=== PATIENT | female | born 1970 | race Caucasian/White ===

== ENCOUNTER 2017-05-08 05:13 | Day surgery (SDC) | payer OTHER ==
[2017-05-04 15:19] LABS: BASOPHILS # (AUTO) 0.1 X10'3 (0-0.2); BASOPHILS % (AUTO) 0.9 % (0-1); EOSINOPHILS # (AUTO) 0.6 X10'3 (0-0.9); EOSINOPHILS % (AUTO) 8.5 % (0-6); LYMPHOCYTES # (AUTO) 2.6 X10'3 (1.1-4.8); LYMPHOCYTES % (AUTO) 35.5 % (21-51); MEAN CORPUSCULAR HEMOGLOBIN 32.2 PG (27.0-31.0); MEAN CORPUSCULAR HGB CONC 34.6 % (33.0-36.5); MEAN CORPUSCULAR VOLUME 92.9 FL (78-98); MEAN PLATELET VOLUME 8.8 FL (7.4-10.4); MONOCYTES # (AUTO) 0.4 X10'3 (0-0.9); MONOCYTES % (AUTO) 5.9 % (2-12); NEUTROPHILS # (AUTO) 3.6 X10'3 (1.8-7.7); NEUTROPHILS % (AUTO) 49.2 % (42-75); PRE OP HEMATOCRIT 36.9 % (35.0-45.0); PRE OP HEMOGLOBIN 12.8 g/dL (12.0-16.0); PRE OP PLATELET COUNT 251 X10'3 (140-440); RED BLOOD COUNT 3.97 X10'6 (4.20-5.60); RED CELL DISTRIBUTION WIDTH 13.8 % (11.5-14.5)
[2017-05-04 15:36] LABS: ALBUMIN 3.5 G/DL (3.4-5.0); ALBUMIN/GLOBULIN RATIO 0.9 (1.1-1.5); ALKALINE PHOSPHATASE 62 IU/L (46-116); BLOOD UREA NITROGEN 16 MG/DL (7-18); BUN/CREATININE RATIO 19.8 (6.6-38.0); CALCIUM 8.5 MG/DL (8.5-10.1); CHLORIDE 107 MMOL/L (99-107); CREATININE 0.81 MG/DL (0.40-0.90); PRE OP ALT 21 U/L (30-65); PRE OP ANION GAP 6 (8-16); PRE OP AST 18 U/L (10-37); PRE OP BILIRUB, TOTAL 0.3 MG/DL (0.0-1.0); PRE OP GLUCOSE 114 MG/DL (70-104); PRE OP POTASSIUM 3.4 MMOL/L (3.4-5.1); PRE OP SODIUM 144 MMOL/L (135-145); TOTAL CARBON DIOXIDE 30.6 MMOL/L (24-32); TOTAL PROTEIN 7.2 G/DL (6.4-8.2); eGFR 75 ML/MIN
[~2017-05-08] VITALS: Ht 165.1 cm; Wt 70.3 kg
[~2017-05-08 05:13] MED LIST: ACET-2615 PO; ALBU8.5H8 INH; DIPH25CA6 PO; FLUT1DIS4 INH; IBUP-1985 PO; ringers solution, lacted 1,000 ML IV SCH
[2017-05-08] MEDS ORDERED: cefazolin/dext.iso 2gm/50ml 50 ML IV ONE (05:30)
[2017-05-08] MEDS ORDERED: famotidine 20mg tablet PO ONE (05:30)
[2017-05-08] MEDS ORDERED: LIDOcaine 1% (10mg/ml) 2ml vial ONE (05:48)
[2017-05-08 06:27] VITALS: BP 144/103
[2017-05-08 06:28] VITALS: BP 144/103
[2017-05-08] MEDS ORDERED: BUPIVAcaine/PF 2.5 mg/ml (0.25%) 30ml vial ONE (06:56)
[2017-05-08] MEDS ORDERED: triamcinolone acetonide 40mg/ml inj ONE (06:56)
[2017-05-08] MEDS ORDERED: cloNIDine hcl/PF 100mcg/ml inj ONE (07:15)
[2017-05-08] MEDS ORDERED: fentaNYL/PF 50MCG/1 ML 2ML syringe ONE (07:17)
[2017-05-08] MEDS ORDERED: MIDAZolam 5mg/5ml vial ONE (07:17)
[2017-05-08] MEDS ORDERED: ROPIVAcaine 0.5% (5mg/ml) 30ml vial ONE (07:18)
[2017-05-08] MEDS ORDERED: propofol inj 20 ML IV ONE (07:40)
[2017-05-08] MEDS ORDERED: LIDOcaine 1%/PF (10mg/ml) 5ml vial ONE (07:40)
[2017-05-08] MEDS ORDERED: ringers solution, lacted 1,000 ML IV SCH (08:06)
[2017-05-08] MEDS ORDERED: meperidine/PF 50mg/ml syringe IV PRN ×3 (08:10)
[2017-05-08] MEDS ORDERED: proCHLORperazine 10 MG/2 ml inj IV PRN (08:10)
[2017-05-08] MEDS ORDERED: ondansetron/PF 4mg/2ml inj IV PRN (08:10)
[2017-05-08] MEDS ORDERED: morphine 2 MG/ML inj. syringe IV PRN ×2 (08:10)
[2017-05-08 08:32] VITALS: BP 126/88
[2017-05-08 08:42] VITALS: BP 124/75
[2017-05-08 08:52] VITALS: BP 128/77
[2017-05-08] MEDS ORDERED: HYDROcodone/acetaminophen 10/325mg tab PO PRN (08:55)
[2017-05-08 09:02] VITALS: BP 145/92
== END 2017-05-08 09:15 | disposition home or self-care (01) ==
LOC: PAS 05:13
PROVIDERS: ATTEND Orthopaedic Surgery
DX: M77.11 Lateral epicondylitis, right elbow (principal); M77.01 Medial epicondylitis, right elbow; M19.111 Post-traumatic osteoarthritis, right shoulder; G89.29 Other chronic pain; K21.9 Gastro-esophageal reflux disease without esophagitis; J45.909 Unspecified asthma, uncomplicated; Z98.890 Other specified postprocedural states; Z79.1 Long term (current) use of non-steroidal anti-inflammatories (NSAID); Z79.899 Other long term (current) drug therapy
CPT/HCPCS: 24358; 36415; 80053; 85025; A4565; A6449; J0690; J0735; J2001; J2250; J2704; J2795; J3010; J3301; J3490; J7120; A7000

== ENCOUNTER 2019-05-24 05:07 | Day surgery (SDC) | payer OTHER ==
[2019-05-18 12:05] LABS: BASOPHILS # (AUTO) 0.1 X10'3 (0-0.2); BASOPHILS % (AUTO) 1.3 % (0-1); EOSINOPHILS # (AUTO) 0.6 X10'3 (0-0.9); EOSINOPHILS % (AUTO) 8.3 % (0-6); LYMPHOCYTES # (AUTO) 2.5 X10'3 (1.1-4.8); LYMPHOCYTES % (AUTO) 35.5 % (21-51); MEAN CORPUSCULAR HGB CONC 32.8 g/dL (33.0-36.5); MEAN CORPUSCULAR VOLUME 85.5 FL (78-98); MEAN PLATELET VOLUME 9.3 FL (7.4-10.4); MONOCYTES # (AUTO) 0.4 X10'3 (0-0.9); MONOCYTES % (AUTO) 5.5 % (2-12); NEUTROPHILS # (AUTO) 3.5 X10'3 (1.8-7.7); NEUTROPHILS % (AUTO) 49.4 % (42-75); PRE OP HEMATOCRIT 37.7 % (35.0-45.0); PRE OP HEMOGLOBIN 12.4 g/dL (12.0-16.0); PRE OP PLATELET COUNT 277 X10'3 (140-440); RED BLOOD COUNT 4.41 X10'6 (4.20-5.60); RED CELL DISTRIBUTION WIDTH 18.1 % (11.5-14.5)
[2019-05-18 12:20] LABS: ALBUMIN 3.8 G/DL (3.4-5.0); ALBUMIN/GLOBULIN RATIO 0.9 (1.1-1.5); ALKALINE PHOSPHATASE 63 IU/L (46-116); BLOOD UREA NITROGEN 14 MG/DL (7-18); BUN/CREATININE RATIO 20.3 (6.6-38.0); CHLORIDE 104 MMOL/L (99-107); CREATININE 0.69 MG/DL (0.40-0.90); PRE OP ALT 25 U/L (30-65); PRE OP ANION GAP 8 (8-16); PRE OP AST 21 U/L (10-37); PRE OP BILIRUB, TOTAL 0.6 MG/DL (0.0-1.0); PRE OP GLUCOSE 98 MG/DL (70-104); PRE OP POTASSIUM 3.8 MMOL/L (3.4-5.1); PRE OP SODIUM 139 MMOL/L (135-145); TOTAL CARBON DIOXIDE 27.1 MMOL/L (24-32); eGFR 90 ML/MIN
[~2019-05-24] VITALS: Ht 165.1 cm; Wt 72.6 kg
[~2019-05-24 05:07] MED LIST changes: -ACET-2615 PO; +DIPH25CA52 PO; -DIPH25CA6 PO; +FLUT16SP2 BOTHNARES; -FLUT1DIS4 INH; +MULT-1085 PO
[2019-05-24 05:30] VITALS: BP 163/95
[2019-05-24] MEDS ORDERED: cefazolin/dext.iso 2gm/100ml 100 ML IV ONE (05:30)
[2019-05-24] MEDS ORDERED: albuterol 2.5 MG/3 ML nebule NEB ONE (05:30)
[2019-05-24] MEDS ORDERED: famotidine 20mg tablet PO ONE (05:30)
[2019-05-24] MEDS ORDERED: LIDOcaine 1% (10mg/ml) 2ml vial ONE (06:20)
[2019-05-24] MEDS ORDERED: BUPIVAcaine/PF 2.5 mg/ml (0.25%) 30ml vial ONE (06:39)
[2019-05-24] MEDS ORDERED: BUPIVAcaine/PF 2.5 mg/ml (0.25%) 30ml vial IJ ONE (07:50)
[2019-05-24] MEDS ORDERED: midazolam 2 mg/2 ml injection ONE (08:39)
[2019-05-24] MEDS ORDERED: fentaNYL/PF 50MCG/1 ML 2ML syringe ONE (08:54)
[2019-05-24] MEDS ORDERED: ondansetron/PF 4mg/2ml inj ONE (09:12)
[2019-05-24] MEDS ORDERED: dexamethasone sod phosphate 4mg/ml inj. ONE (09:12)
[2019-05-24] MEDS ORDERED: ROPIVAcaine 0.5% (5mg/ml) 30ml vial ONE (09:12)
[2019-05-24] MEDS ORDERED: propofol inj 20 ML IV ONE (09:12)
[2019-05-24] MEDS ORDERED: LIDOcaine 2% (20mg/ml) 5ml vial ONE (09:12)
[2019-05-24] MEDS ORDERED: 0.9 % SODIUM CHLORIDE 10 ML VIAL ONE (09:28)
[2019-05-24] MEDS ORDERED: ePHEDrine 50MG/ML INJ. ONE (09:28)
[2019-05-24 10:06] VITALS: BP 129/78
--- NOTE | 2019-05-24 10:06 | NUR ---
Received from OR via , accompanied by Anesthesiologist DR BAÑUELOS and report given by Anesthesiolgist. AWAKENS TO VOICE. VITALS STABLE. DRESSING DI. VENANCIO PAIN. FINGERS COOL AND PINK.
[2019-05-24] MEDS ORDERED: meperidine/PF 25mg/ml syringe IV PRN ×3 (10:10)
[2019-05-24] MEDS ORDERED: morphine 4 MG/ML inj SYRINge IV PRN (10:10)
[2019-05-24] MEDS ORDERED: morphine 2 MG/ML inj. syringe IV PRN (10:10)
[2019-05-24] MEDS ORDERED: proCHLORperazine 10 MG/2 ml inj IV PRN (10:10)
[2019-05-24] MEDS ORDERED: ondansetron/PF 4mg/2ml inj IV PRN (10:10)
[2019-05-24] MEDS ORDERED: ringers solution, lacted 1,000 ML IV SCH (10:10)
[2019-05-24] MEDS ORDERED: HYDROcodone/acetaminophen 10/325mg tab PO PRN (10:15)
[2019-05-24 10:16] VITALS: BP 120/71
[2019-05-24 10:26] VITALS: BP 117/75
[2019-05-24 10:36] VITALS: BP 137/88
[2019-05-24 10:46] VITALS: BP 128/77
--- NOTE | 2019-05-24 11:06 | NUR ---
AWAKE AND ORIENTED. VITALS STABLE. DRESSINGS DI. VENANCIO PAIN. HOME WITH HER FAMILY AT THIS TIME.
== END 2019-05-24 11:06 | disposition home or self-care (01) ==
LOC: PAS 05:07
PROVIDERS: ATTEND Orthopaedic Surgery
DX: G56.01 Carpal tunnel syndrome, right upper limb (principal); M65.331 Trigger finger, right middle finger; M77.01 Medial epicondylitis, right elbow; G56.21 Lesion of ulnar nerve, right upper limb
CPT/HCPCS: 24357; 26055; 36415; 64718; 64721; 80053; 82948; 85025; 93005; A6222; J1100; J2001; J2250; J2405; J2704; J3010; J3490; J7120; A4215; A4565; A4618; A6449; A6455; A7000; J2795